=== PATIENT | female | born 1950 | race Caucasian/White ===

== ENCOUNTER → 2019-12-13 | Outpatient (CLI) | payer MEDICARE | LOC: M LABSMTC 09:55 | PROVIDERS: ATTEND Family Medicine | DX: Z11.59 Encounter for screening for other viral diseases (principal); Z20.828 Contact with and (suspected) exposure to other viral communicable diseases ==

== ENCOUNTER → 2022-05-05 | Outpatient (CLI) | payer MEDICARE ==
[~2022-05-05] MED LIST: CALC600T17 PO; CENT1TAB PO; CVS1CAP2 PO; ESTR1TAB PO; FISH1000 PO; OCUV1CAP4 PO; ULTR5TAB PO
== END ==
LOC: M LABSMTC 10:23
PROVIDERS: ATTEND Anesthesiology
DX: Z01.812 Encounter for preprocedural laboratory examination (principal); Z20.822 Contact with and (suspected) exposure to COVID-19

== ENCOUNTER 2022-05-08 10:49 | Day surgery (SDC) | payer MEDICARE ==
[~2022-05-08] VITALS: Ht 162.6 cm; Wt 66.1 kg
[~2022-05-08 10:49] MED LIST changes: +NS 1,000 ML IV ONE
[2022-05-08] MEDS ORDERED: LIDOCAINE 2% 100MG/5ML SDV (FOR ANES.) As Ordered ONE (11:28)
[2022-05-08] MEDS ORDERED: propofoL 200 MG/20 ML VIAL As Ordered ONE ×2 (11:28→12:44)
[2022-05-08 13:30] VITALS: BP 122/56
== END 2022-05-08 13:40 | disposition home or self-care (01) ==
LOC: M OPP 10:49
PROVIDERS: ATTEND Internal Medicine Gastroenterology
DX: D12.2 Benign neoplasm of ascending colon (principal); K57.30 Diverticulosis of large intestine without perforation or abscess without bleeding; K64.0 First degree hemorrhoids; Z79.818 Long term (current) use of other agents affecting estrogen receptors and estrogen levels; Z87.891 Personal history of nicotine dependence

== ENCOUNTER 2025-05-18 11:10 | Day surgery (SDC) | payer MEDICARE ==
[~2025-05-18] VITALS: Ht 160 cm; Wt 63.8 kg
[~2025-05-18 11:10] MED LIST changes: +DOXY-441 PO; +LIDOCAINE 2% 100 MG/5 ML SDV (FOR ANES.) As Ordered ONE; -NS 1,000 ML IV ONE
[2025-05-18 11:43] VITALS: TEMP 97.5
[2025-05-18 12:05] VITALS: BP 113/56; O2SAT 99
== END 2025-05-18 12:05 | disposition home or self-care (01) ==
LOC: M OPP 11:10
PROVIDERS: ATTEND Internal Medicine Gastroenterology
DX: K57.30 Diverticulosis of large intestine without perforation or abscess without bleeding (principal); K64.0 First degree hemorrhoids; Z86.0100 Personal history of colon polyps, unspecified; Z79.899 Other long term (current) drug therapy; Z87.891 Personal history of nicotine dependence